=== PATIENT | female | born 1955 | race Caucasian/White ===

== ENCOUNTER 2016-10-19 13:06 | Emergency (ER) | payer SELFPAY ==
[~2016-10-19 13:06] MED LIST: ATOR20TA PO; BUPR150T7 PO; ORE25 PO; PANT40EC PO; PREN-152 PO; SERT100T PO; VARE1TAB2 PO; [UNRECOGNIZED DRUG - CODE] PO
--- NOTE | 2016-10-19 13:30 | NUR ---
NO ANSWER IN ER LOBBY
== END 2016-10-19 13:30 | disposition left against medical advice (07) ==
LOC: MED 13:06
DX: Z53.21 Procedure and treatment not carried out due to patient leaving prior to being seen by health care provider (principal)

== ENCOUNTER 2018-07-09 10:17 | Emergency (ER) | payer SELFPAY ==
[~2018-07-09 10:17] MED LIST changes: +ARIP5TAB8 PO; +BUPR150T12 PO; +FISH10005 PO; +MELA5SGL PO; +VARE1TAB PO
== END 2018-07-09 11:00 | disposition left against medical advice (07) ==
LOC: MED 10:17 → MERGE 10:17 → MED 11:00
DX: M54.9 Dorsalgia, unspecified (principal); Z53.21 Procedure and treatment not carried out due to patient leaving prior to being seen by health care provider

== ENCOUNTER 2018-07-09 18:22 | Emergency (ER) | payer MEDICAID ==
[~2018-07-09] VITALS: Ht 167.6 cm; Wt 83.0 kg
[2018-07-09 18:27] VITALS: BP 121/72
--- NOTE | 2018-07-09 18:43 | NUR ---
pt bib adult female friend from home for rt flank/rt low back area pains,vas 10/10 now,for 3 weeks now and worsened the last few days.awaits er md evaluations/assessments.lesly guerin.
--- NOTE | 2018-07-09 19:06 | NUR ---
pt endorsed to/accepted by mohit arizmendi.
--- NOTE | 2018-07-09 19:12 | NUR ---
Dr. Levin evaluating patient at bedside.
--- NOTE | 2018-07-09 19:14 | NUR ---
report received from BEN Momin. assumed care at this time.
[2018-07-09] MEDS ORDERED: KETOROLAC 30 MG/ML VIAL IVP ONE (19:25)
[2018-07-09] MEDS ORDERED: ONDANSETRON 4 MG/2 ML VIAL IVP ONE (19:25)
[2018-07-09] MEDS ORDERED: NACL 0.9% 1,000 ML IV ONE (19:25)
--- NOTE | 2018-07-09 20:50 | NUR ---
PATIENT STATES PAIN HAS RETURNED SINCE GETTING THE TORADOL. DR BABB MADE AWARE.
[2018-07-09] MEDS ORDERED: MORPHINE SULFATE 4 MG/ML SYR IVP ONE (20:55)
--- NOTE | 2018-07-09 21:03 | NUR ---
PT RETURN FROM CT
[2018-07-09 21:55] VITALS: BP 118/71
== END 2018-07-09 21:55 | disposition home or self-care (01) ==
LOC: MED 18:22 → MERGE 18:22 → MED 21:55
DX: M54.6 Pain in thoracic spine (principal); R11.0 Nausea; R68.83 Chills (without fever); K21.9 Gastro-esophageal reflux disease without esophagitis; I10 Essential (primary) hypertension; G43.909 Migraine, unspecified, not intractable, without status migrainosus; Z79.899 Other long term (current) drug therapy
CPT/HCPCS: 71250; 74176; 81002; 96374; 96375; 99284; J1885; J2270; J2405; J7030

== ENCOUNTER 2018-09-17 10:51 | Emergency (ER) | payer MEDICAID ==
[~2018-09-17] VITALS: Ht 165.1 cm; Wt 84.4 kg
--- NOTE | 2018-09-17 11:10 | NUR ---
PT AMBULATED TO ED BED 03
[2018-09-17 11:13] VITALS: BP 101/74
--- NOTE | 2018-09-17 11:25 | NUR ---
PT C/O RIGHT LOWER BACK PAIN X 1 WK, RATED AT 10/10, SHARP, AND RADIATING TO ANTERIOR PELVIC REGION. AGGRAVATED BY WALKING, LYING DOWN, MOVING, SITTING FOR LONG PERIODS OF TIME. TAKES NAPROSYN FOR OA, LAST TAKEN LAST NIGHT- DOES NOT HELP WITH BACK PAIN. STATES TORADOL IM USUALLY GIVEN AT PCP VISITS RELIEVE PAIN. DENIES FEVER, CHILLS. DENIES TRAUMA. STATES LONG HX OF BACK PAIN. BEDRAILS UPX1, LOCKED & LOW. ERMD TO [facility] PT.
--- NOTE | 2018-09-17 11:45 | NUR ---
DR. DAWSON AT BEDSIDE TO EVAL PATIENT.
[2018-09-17] MEDS ORDERED: KETOROLAC 30 MG/ML VIAL IM ONE (11:50)
[2018-09-17] MEDS ORDERED: HYDROcodone/APAP 5/325 MG 1 TAB TAB PO ONE (11:50)
[2018-09-17 12:40] VITALS: BP 98/65
--- NOTE | 2018-09-17 12:41 | NUR ---
Patient discharged with v/s stable. Written and verbal after care instructions given and explained. Patient alert, oriented and verbalized understanding of instructions. Ambulatory with steady gait. All questions addressed prior to discharge. ID band removed. Patient advised to follow up with PMD. Rx of NORCO 5/325, NAPROSYN 500 MG, LIDODERM PATCH 5% given. Patient educated on indication of medication including possible reaction and side effects. Opportunity to ask questions provided and answered.
== END 2018-09-17 12:41 | disposition home or self-care (01) ==
LOC: MED 10:51
DX: G89.29 Other chronic pain (principal); M54.9 Dorsalgia, unspecified; J45.909 Unspecified asthma, uncomplicated; K21.9 Gastro-esophageal reflux disease without esophagitis; I10 Essential (primary) hypertension; M06.9 Rheumatoid arthritis, unspecified; Z90.710 Acquired absence of both cervix and uterus; Z90.89 Acquired absence of other organs; Z98.51 Tubal ligation status; Z98.890 Other specified postprocedural states; Z79.899 Other long term (current) drug therapy
CPT/HCPCS: 81002; 96372; 99283; J1885

== ENCOUNTER 2019-01-30 13:44 | Emergency (ER) | payer MEDICAID, OTHER ==
[~2019-01-30] VITALS: Ht 165.1 cm; Wt 78.5 kg
[2019-01-30 13:58] VITALS: BP 110/77
[2019-01-30] MEDS ORDERED: diphenhydrAMINE 50 MG/ML VIAL IVP ONE (15:05)
[2019-01-30] MEDS ORDERED: KETOROLAC 15 MG/ML VIAL IVP ONE (15:05)
[2019-01-30] MEDS ORDERED: NACL 0.9% 1,000 ML IV ONE (15:05)
[2019-01-30] MEDS ORDERED: METOCLOPRAMIDE 10 MG/2 ML INJ VIAL IVP ONE (15:05)
[2019-01-30 16:24] VITALS: BP 110/77
== END 2019-01-30 16:24 | disposition home or self-care (01) ==
LOC: MED 13:44
DX: R51 Headache (principal); J45.909 Unspecified asthma, uncomplicated; K21.9 Gastro-esophageal reflux disease without esophagitis; I10 Essential (primary) hypertension; M19.90 Unspecified osteoarthritis, unspecified site; Z98.890 Other specified postprocedural states; Z79.899 Other long term (current) drug therapy
CPT/HCPCS: 96374; 96375; 99283; J1200; J1885; J2765; J7030

== ENCOUNTER 2022-05-27 08:43 | Emergency (ER) | payer MEDICARE, OTHER ==
[~2022-05-27] VITALS: Ht 167.6 cm; Wt 86.2 kg
[~2022-05-27 08:43] MED LIST changes: -BUPR150T7 PO; +HYDR-4004 PO; -ORE25 PO; +[UNRECOGNIZED DRUG - CODE] PO
[2022-05-27 08:59] VITALS: BP 127/82
--- NOTE | 2022-05-27 09:07 | NUR ---
Patient ambulated to bed 7.
--- NOTE | 2022-05-27 09:08 | NUR ---
Patient being evaluated by Dr. Floyd at bedside.
[2022-05-27] MEDS ORDERED: ONDANSETRON 4 MG/2 ML VIAL IVP ONE (09:10)
[2022-05-27] MEDS ORDERED: NACL 0.9% 1,000 ML IV ONE (09:10)
[2022-05-27] MEDS ORDERED: KETOROLAC 15 MG/ML VIAL IVP ONE (09:10)
--- NOTE | 2022-05-27 09:27 | NUR ---
Patient was taken to CT via [facility].
--- NOTE | 2022-05-27 09:40 | NUR ---
66 y/o female bib self with c/o right sided flank pain x 1 week. Per patient, was seen at [facility] 5 days ago to r/o kidney stone. Patient denies any heavy lifting or fall. Patient has nausea. Denies any fever, chills or dysuria. Medical History: HTN, GERD, Hiatal Hernia, Depression, Anxiety NKDA
[2022-05-27 10:38] LABS: APPEARANCE,URINE CLEAR (CLEAR); BILIRUBIN,URINE NEGATIVE (NEGATIVE); BLOOD, URINE TRACE-I (NEGATIVE); COLOR,URINE YELLOW (YELLOW); NITRITE, URINE POSITIVE (NEGATIVE); UGLUCOSE NEGATIVE (NEGATIVE)
[2022-05-27 10:48] LABS: LEUKOCYTE ESTERASE ,URINE 3+ (NEGATIVE)
[2022-05-27 10:50] LABS: BASOPHILS % (AUTO) 0.5 % (0.0-2.0); EOSINOPHILS # (AUTO) 0.1 K/uL (0-0.4); EOSINOPHILS % (AUTO) 1.4 % (0.0-4.0); HEMATOCRIT 34.9 % (36-48); HEMOGLOBIN 11.5 g/dL (12.0-16.0); LYMPHOCYTES # (AUTO) 2.2 K/uL (2.5-16.5); LYMPHOCYTES % (AUTO) 33.4 % (20.5-51.1); MEAN CORPUSCULAR HEMOGLOBIN 27 pg (27-31); MEAN CORPUSCULAR HGB CONC 33 g/dL (33-37); MEAN CORPUSCULAR VOLUME 81.3 fL (80-94); MONOCYTES # (AUTO) 0.4 K/uL (0.8-1.0); MONOCYTES % (AUTO) 5.6 % (1.7-9.3); NEUTROPHILS % (AUTO) 59.1 % (42.2-75.2); PLATELET COUNT (AUTO) 188 K/uL (140-450); RED BLOOD CELL COUNT(AUTO) 4.29 MIL/uL (4.20-5.40); RED CELL DISTRIBUTION WIDTH 15.5 % (11.6-13.7); WHITE BLOOD COUNT (AUTO) 6.7 K/uL (4.8-10.8)
[2022-05-27 11:05] LABS: RBC,URINE 0-5 /HPF (0-5); WBC,URINE 60-80 /HPF (0-5)
[2022-05-27 11:05] LABS: ALBUMIN 3.6 g/dL (3.4-5.0); ANION GAP 9.3 (8-16); CARBON DIOXIDE 29.9 mmol/L (21-32); CREATININE 0.8 mg/dL (0.6-1.3); POTASSIUM 4.2 mmol/L (3.5-5.1); TOTAL BILIRUBIN 0.4 mg/dL (0.0-1.0)
[2022-05-27] MEDS ORDERED: HYDROcodone/APAP 5/325 MG 1 TAB TAB PO ONE (11:15)
[2022-05-27] MEDS ORDERED: cefTRIAXone 1,000 MG VIAL ONE (11:16)
[2022-05-27] MEDS ORDERED: CEPH-588 PO (11:18)
[2022-05-27] MEDS ORDERED: ACET-5629 PO (11:19)
[2022-05-27] MEDS ORDERED: NAPR-54 PO (11:19)
[2022-05-27 12:00] VITALS: BP 120/85
--- NOTE | 2022-05-27 12:00 | NUR ---
Patient discharged with v/s stable. Written and verbal after care instructions given and explained. Patient alert, oriented and verbalized understanding of instructions. Ambulatory with to car. All questions addressed prior to discharge. ID band removed. Patient advised to follow up with PMD. Rx of keflex/naproxen/oxycodone hcl/acetaminophen given. Patient educated on indication of medication including possible reaction and side effects. Opportunity to ask questions provided and answered.
== END 2022-05-27 12:00 | disposition home or self-care (01) ==
LOC: MED 08:43
DX: N12 Tubulo-interstitial nephritis, not specified as acute or chronic (principal); K21.9 Gastro-esophageal reflux disease without esophagitis; J45.909 Unspecified asthma, uncomplicated; I10 Essential (primary) hypertension; Z79.899 Other long term (current) drug therapy
CPT/HCPCS: 36415; 74176; 80053; 81001; 83690; 85025; 87086; 96361; 96365; 96375; 99285; J0696; J1885; J2405; J7030

== ENCOUNTER 2023-05-29 15:09 | Emergency (ER) | payer OTHER ==
[~2023-05-29] VITALS: Ht 167.6 cm; Wt 88.5 kg
[2023-05-29 15:09] VITALS: BP 124/69; PULSE 98; RESP 16; TEMP 97.6; O2SAT 99
[~2023-05-29 15:09] MED LIST changes: +ACET-5629 PO; +CEPH-588 PO; +NAPR-54 PO
[2023-05-29 16:24] LABS: BASOPHILS % (AUTO) 0.5 % (0.0-2.0); EOSINOPHILS % (AUTO) 0.2 % (0.0-4.0); HEMATOCRIT 33.6 % (36-48); HEMOGLOBIN 11.6 g/dL (12.0-16.0); LYMPHOCYTES # (AUTO) 2.5 K/uL (2.5-16.5); LYMPHOCYTES % (AUTO) 30.2 % (20.5-51.1); MEAN CORPUSCULAR HEMOGLOBIN 29 pg (27-31); MEAN CORPUSCULAR HGB CONC 35 g/dL (33-37); MEAN CORPUSCULAR VOLUME 83.9 fL (80-94); MONOCYTES # (AUTO) 0.6 K/uL (0.8-1.0); MONOCYTES % (AUTO) 7.2 % (1.7-9.3); NEUTROPHILS # (AUTO) 5.1 K/uL (1.8-7.7); NEUTROPHILS % (AUTO) 61.9 % (42.2-75.2); PLATELET COUNT (AUTO) 230 K/uL (140-450); RED BLOOD CELL COUNT(AUTO) 4.01 MIL/uL (4.20-5.40); RED CELL DISTRIBUTION WIDTH 15.1 % (11.6-13.7); WHITE BLOOD COUNT (AUTO) 8.3 K/uL (4.8-10.8)
[2023-05-29 16:31] LABS: CARBON DIOXIDE 29.3 mmol/L (21-32); CREATININE 0.8 mg/dL (0.6-1.3); POTASSIUM 4.3 mmol/L (3.5-5.1)
[2023-05-29] MEDS: LORazepam 1 MG TAB PO ONE (16:41)
[2023-05-29] MEDS: KETOROLAC 30 MG/ML VIAL IM ONE (17:21)
[2023-05-29 17:40] VITALS: BP 124/69; PULSE 88; RESP 16; TEMP 97.6; O2SAT 96
== END 2023-05-29 17:40 | disposition home or self-care (01) ==
LOC: MED 15:09
DX: F41.9 Anxiety disorder, unspecified (principal); J45.909 Unspecified asthma, uncomplicated; I10 Essential (primary) hypertension; K21.9 Gastro-esophageal reflux disease without esophagitis; Z79.899 Other long term (current) drug therapy
CPT/HCPCS: 36415; 71045; 80048; 84484; 85025; 93005; 96372; 99285; J1885

== ENCOUNTER 2023-08-06 10:06 | Emergency (ER) | payer OTHER ==
[~2023-08-06] VITALS: Ht 167.6 cm; Wt 89.4 kg
[~2023-08-06 10:06] MED LIST changes: +NAPR-337 PO; -NAPR-54 PO
[2023-08-06 10:15] VITALS: BP 133/88; PULSE 79; RESP 20; TEMP 98; O2SAT 97
[2023-08-06] MEDS: NACL 0.9% 1,000 ML IV ONE (10:58)
[2023-08-06] MEDS: METOCLOPRAMIDE 10 MG/2 ML INJ VIAL IVP ONE (10:58)
[2023-08-06] MEDS: diphenhydrAMINE 50 MG/ML VIAL IVP ONE (10:58)
[2023-08-06] MEDS ORDERED: IBUP-2213 PO (11:22)
[2023-08-06] MEDS ORDERED: ACET-8905 PO (11:22)
[2023-08-06 11:45] VITALS: BP 133/88; PULSE 79; RESP 20; TEMP 98; O2SAT 97
== END 2023-08-06 11:45 | disposition home or self-care (01) ==
LOC: MED 10:06
DX: R51.9 Headache, unspecified (principal); J45.909 Unspecified asthma, uncomplicated; R10.30 Lower abdominal pain, unspecified; F17.200 Nicotine dependence, unspecified, uncomplicated; K21.9 Gastro-esophageal reflux disease without esophagitis; I10 Essential (primary) hypertension; Z79.1 Long term (current) use of non-steroidal anti-inflammatories (NSAID); Z79.899 Other long term (current) drug therapy
CPT/HCPCS: 81002; 96361; 96374; 96375; 99284; J1200; J2765; J7030

== ENCOUNTER 2024-02-09 14:44 | Emergency (ER) | payer MEDICARE, OTHER ==
[~2024-02-09] VITALS: Ht 167.6 cm; Wt 86.7 kg
[~2024-02-09 14:44] MED LIST changes: +ACET-8905 PO; +IBUP-2213 PO; +[UNRECOGNIZED DRUG - CODE] PO; -[UNRECOGNIZED DRUG - CODE] PO
[2024-02-09 15:03] VITALS: BP 140/78; PULSE 83; RESP 18; TEMP 97; O2SAT 98
[2024-02-09 15:55] VITALS: O2SAT 98
[2024-02-09 16:00] VITALS: BP 156/70; PULSE 83; RESP 18; TEMP 97; O2SAT 98
[2024-02-09] MEDS: NACL 0.9% 1,000 ML IV ONE (16:17)
[2024-02-09] MEDS: PROCHLORPERAZINE 10 MG/2 ML VIAL IVP ONE (16:36)
[2024-02-09] MEDS: DEXAMETHASONE 10 MG/ML VIAL IVP ONE (16:36)
[2024-02-09] MEDS: KETOROLAC 30 MG/ML VIAL IVP ONE (16:36)
[2024-02-09] MEDS: diphenhydrAMINE 50 MG/ML VIAL IVP ONE (16:36)
== END 2024-02-09 17:22 | disposition home or self-care (01) ==
LOC: MED 14:44
DX: G43.909 Migraine, unspecified, not intractable, without status migrainosus (principal); R11.0 Nausea; R42 Dizziness and giddiness; J45.909 Unspecified asthma, uncomplicated; K21.9 Gastro-esophageal reflux disease without esophagitis; E78.5 Hyperlipidemia, unspecified; I10 Essential (primary) hypertension; E11.9 Type 2 diabetes mellitus without complications; Z90.49 Acquired absence of other specified parts of digestive tract; Z90.710 Acquired absence of both cervix and uterus; Z90.89 Acquired absence of other organs; Z98.51 Tubal ligation status; Z79.899 Other long term (current) drug therapy
CPT/HCPCS: 96361; 96374; 96375; 99284; J0780; J1100; J1200; J1885; J7030